=== PATIENT | male | born 1985 | race Caucasian/White ===

== ENCOUNTER 2016-05-16 08:54 | Emergency (ER) | payer OTHER ==
[2016-05-16] MEDS ORDERED: DEXAMETHASONE 10 MG/ML VIAL PO STA (10:00)
[2016-05-16] MEDS ORDERED: CHERRY SYRUP 10 ML UDC PO ONE (10:04)
[2016-05-16] MEDS ORDERED: DEXAMETHASONE 10 MG/ML VIAL ONE (10:05)
== END 2016-05-16 10:27 | disposition home or self-care (01) ==
DX: M54.31 Sciatica, right side (principal)
CPT/HCPCS: 99283; A9270